=== PATIENT | female | born 1980 | race Caucasian/White ===

== ENCOUNTER 2019-09-18 12:05 | Observation (INO) ==
[2019-09-18 12:56] LABS: BASO# 0.03 X1000 (0.0-0.2); BASO% 0.4 % (0.0-0.8); EOS# 0.11 X1000 (0.0-0.7); EOS% 1.3 % (0.0-10.0); HEMATOCRIT 37.7 % (37.0-47.0); HEMOGLOBIN 11.7 g/dL (12.0-16.0); IMM GRAN# 0.01 X1000 (0.0-0.04); IMM GRAN% 0.1 % (0.0-0.5); LYMPH# 2.37 X1000 (1.2-3.4); LYMPH% 27.8 % (20.5-51.1); MCH 27.7 PG (27-31); MCV 89.3 FL (81-99); MONO# 0.63 X1000 (0.11-0.59); MONO% 7.4 % (1.7-9.3); MPV 9.8 FL (7.4-10.4); NEUT# 5.39 X1000 (1.4-6.5); PLT 285 X1000 (130-400); RBC 4.22 XMIL (4.2-5.4); RDW 16.4 % (11.5-14.5); WBC 8.54 X1000 (4.8-10.8)
[2019-09-18 13:04] LABS: ACETAMINOPHEN < 1.2 ug/mL (10-30); AGAP 14; ALBUMIN 4.8 g/dL (3.5-5.0); ALKALINE PHOSPHATASE 35 U/L (32-104); BUN 15 mg/dL (8-22); CALCIUM 9.1 mg/dL (8.8-10.2); CHLORIDE 102 mmol/L (98-107); COSMO 278; CREATININE 0.6 mg/dL (0.5-0.9); ESTIMATED GFR > 60; GLUCOSE 83 mg/dL (70-104); GOT 20 U/L (10-30); GPT 14 U/L (10-36); POTASSIUM 3.9 mmol/L (3.5-5.1); SALICYLATES < 3.00 mg/dL (3-10); SODIUM 139 mmol/L (136-145); TCO2 24 mmol/L (25-35); TOTAL PROTEIN 7.5 g/dL (6.3-8.3)
--- NOTE | 2019-09-18 14:56 | PROVIDER DOCUMENTATION ---
This chart was entered by Vianey Henriquez Scribe, acting as scribe for Mercedes Rubi CRNP. [id number] Abuse/Overdose - General Chief Complaint: Psych-High Risk Stated Complaint: overdose Time Seen by Provider: 09/18/19 12:59 Source: patient, EMS ([facility]) Unable to obtain history due to:: urgency Allergies/Adverse Reactions: Allergies Allergy/AdvReac Type Severity Reaction Status Date / Time sulfamethoxazole Allergy Unknown Verified 10/25/17 13:16 [From ] trimethoprim [From ] Allergy Unknown Verified 10/25/17 13:16 Home Medications: Home Medication List Medication Instructions Recorded Confirmed Last Taken Type Amphetamine Salts [Adderall] 20 mg PO DAILY 01/08/18 01/08/18 Unknown History Fluoxetine HCl 20 mg PO DAILY 01/08/18 01/08/18 Unknown History Lisdexamfetamine Dimesylate 70 mg PO DAILY 01/08/18 01/08/18 Unknown History [Vyvanse] - History of Present Illness-Drug/Alcohol Nature of Presenting Problem: 39 yowf presents to the ed via ems for overdose. pt intentionally overdosed this am approximately at 1020am. pt sts she has been depressed due to her leaving her 3 weeks prior. Pt reports taking x 30 0.5mg Klonopin, x2 20mg adderall and x1 70mg Vyvanse. However, a bottle of 60 pills was filled yesterday and only 2 were found in the bottle. pt on exam is A&Ox3. no family is with pt at this time This episode of drinking or use began:: this morning (1020) Severity: reports: moderate Situational problems related to:: reports: spouse Psychiatric Complaints: reports: depressed, suicidal ideation Associated Symptoms: reports: denies symptoms. denies: diaphoresis, dizziness, nausea, vomiting Any injuries associated with this episode of intoxication?: No Similar Symptoms Previously?: Yes Recently seen or treated by another doctor?: No - Substance Abuse Substance Use: reports: denies - Overdose Intentional drug overdose?: Yes List substance(s) ingested.: clonopin/adderall/vayvanse How did the ingestion/other suicidal act come to attention?: unsure Suicide Risk Assessment: depressed, prior attempt, no social supports, organized plan, no spouse, panic disorder Clinician's estimation of suicide risk?: high risk Review of Systems - Adult - REVIEW OF SYSTEMS - ADULT Constitutional: denies: chills, fever Eyes: reports: no symptoms reported Ears, Nose, Mouth & Throat: reports: no symptoms reported Cardiovascular: denies: chest pain, palpitations Respiratory: reports: no symptoms reported Gastrointestinal: denies: abdominal pain, diarrhea, nausea, vomiting Genitourinary: reports: no symptoms reported Musculoskeletal: denies: back pain, neck pain Integumentary: reports: no symptoms reported Neurological: reports: no symptoms reported Psychiatric: reports: see HPI, depression, suicidal thoughts Endocrine: reports: no symptoms reported Hematologic/Lymphatic: reports: no symptoms reported Allergic/Immunologic: reports: no symptoms reported All Other Systems: Reviewed and Negative Past History - Adult - PAST MEDICAL HISTORY-ADULT Review of Records: reports: Old Records Reviewed, Nursing Assessment Review, Medications Reviewed, Social history reviewed & non-contributory. Major Childhood Illnesses: reports: denies history Cardiovascular: reports: denies history Respiratory: reports: denies history Gastrointestinal: reports: denies history Obstetrical/Gynecological: reports: denies history Genitourinary: reports: denies history Musculoskeletal: reports: denies history Neurological: reports: denies history Psychiatric: reports: anxiety, depression, other (panic attack) Endocrine/Immune: reports: denies history Other Conditions: reports: denies history - PRIOR SURGERIES/PROCEDURES Surgical/Procedure History: reports: reviewed, not pertinent - IMMUNIZATION STATUS Childhood Immunizations: See Nurse Assessment Flu Vaccine: See Nurse Assessment - FAMILY HISTORY Family History: reviewed, not pertinent - SOCIAL HISTORY Smoking: denies Substance Use: denies Living Situation: family Physical Exam-General - PHYSICAL EXAM-ADULT Initial Vital Signs Reviewed: Yes - CONSTITUTIONAL General Appearance: alert, no apparent distress, thin, other (tearful) - EYES Eyes: PERRL/EOMI, pink conjunctivae - HEAD, EARS, NOSE, MOUTH & THROAT HENMT: moist mucous membranes - NECK Neck: non-tender, full range of motion, supple, normal inspection - RESPIRATORY Respiratory: lungs clear, normal breath sounds, no respiratory distress, no accessory muscle use - CARDIOVASCULAR Cardiovascular: normal peripheral pulses, regular rate, rhythm - CHEST (BREASTS) Chest/Breast: deferred - GASTROINTESTINAL (ABDOMEN) Abdominal Exam: normal bowel sounds, non tender, soft - GENITOURINARY Female Genitalia/Pelvic Exam: deferred Rectal Exam: deferred Hemoccult Exam: deferred - LYMPHATIC Lymphatic: no adenopathy - MUSCULOSKELETAL Back Exam: normal inspection, no vertebral tenderness Extremity: normal range of motion, non-tender, normal inspection - SKIN Integumentary: normal color, normal turgor, warm/dry. negative: diaphoresis, jaundice, pallor - NEUROLOGIC Neurologic: grossly normal, no motor/sensory deficits - PSYCHIATRIC Psych/Mental Status: normal thought content, normal thought process, oriented x 3, depressed affect, tearful Progress - PLAN OF CARE/RESULTS Progress/Plan/Lab Results: Vital Signs - 8 hr 09/18/19 12:08 09/18/19 13:25 09/18/19 14:16 Temperature 98.4 F Pulse Rate 85 80 77 Respiratory Rate 20 16 18 Blood Pressure 105/73 120/47 112/88 O2 Sat by Pulse Oximetry 100 100 99 Laboratory Results - last 24 hr 09/18/19 09/18/19 09/18/19 12:43 12:51 12:51 WBC RBC Hgb Hct MCV MCH MCHC RDW Std Deviation Plt Count MPV Immature Gran % (Auto) Neut % (Auto) Lymph % (Auto) [place] % (Auto) Eos % (Auto) Baso % (Auto) Immature Gran # (Auto) Neut # (Auto) Lymph # (Auto) [place] # (Auto) Eos # (Auto) Baso # (Auto) Sodium 139 Potassium 3.9 Chloride 102 Carbon Dioxide 24 L Anion Gap 14 BUN 15 Creatinine 0.6 Estimated GFR/1.73 m2 > 60 BUN/Creatinine Ratio 25 Glucose 83 POC Glucose 73 Calculated Osmolality 278 Calcium 9.1 Total Bilirubin 0.40 AST 20 ALT 14 Alkaline Phosphatase 35 Total Protein 7.5 Albumin 4.8 Globulin 3.0 Albumin/Globulin Ratio 2.0 Salicylates < 3.00 L Acetaminophen < 1.2 L Plasma/Serum Ethyl Alc 09/18/19 12:51 WBC 8.54 RBC 4.22 Hgb 11.7 L Hct 37.7 MCV 89.3 MCH 27.7 MCHC 31.0 L RDW Std Deviation 16.4 H Plt Count 285 MPV 9.8 Immature Gran % (Auto) 0.1 Neut % (Auto) 63.0 Lymph % (Auto) 27.8 Bowman % (Auto) 7.4 Eos % (Auto) 1.3 Baso % (Auto) 0.4 Immature Gran # (Auto) 0.01 Neut # (Auto) 5.39 Lymph # (Auto) 2.37 Bowman # (Auto) 0.63 H Eos # (Auto) 0.11 Baso # (Auto) 0.03 Sodium Potassium Chloride Carbon Dioxide Anion Gap BUN Creatinine Estimated GFR/1.73 m2 BUN/Creatinine Ratio Glucose POC Glucose Calculated Osmolality Calcium Total Bilirubin AST ALT Alkaline Phosphatase Total Protein Albumin Globulin Albumin/Globulin Ratio Salicylates Acetaminophen Plasma/Serum Ethyl Alc Orders Category Date Time Status Cardiac Monitoring DIRECTED Care 09/18/19 12:15 Active Finger Stick Blood Sugar (ED) DIRECTED Care 09/18/19 12:15 Active Neurological Check ORDERED Care 09/18/19 13:37 Active ACETAMINOPHEN [TDM] Stat Lab 09/18/19 12:51 Completed ALCOHOL BLOOD Stat Lab 09/18/19 12:51 Completed CBC WITH ELECTRONIC DIFF [HEME] Stat Lab 09/18/19 12:51 Completed COMPREHENSIVE METABOLIC PANEL [CHEM] Stat Lab 09/18/19 12:51 Completed SALICYLATES [TDM] Stat Lab 09/18/19 12:51 Completed URINALYSIS [URINALYSIS] Stat Lab 09/18/19 12:36 Ordered URINE DRUG SCREEN PL Stat Lab 09/18/19 12:36 Ordered Overdose (suspected) Stat Oth 09/18/19 12:14 Ordered EKG [EKG] Stat Ther 09/18/19 12:15 Ordered Transfer/Admit Order [TRANSFER] Routine Transfer 09/18/19 13:34 Ordered Result Diagrams: 09/18/19 12:51 09/18/19 12:51 - REASSESSMENT Reassessment #1 Time Reassessed: 13:15 (Pt aware will need admission) Status: unchanged (pt is resting in bed in no distress) - EKG 1 Time of EKG reading by physician:: 12:58 EKG Read and Signed by:: Suleman Stringer EKG Interpretation (*Must complete 3 of following elements*): Normal (borderline) Rate: 72 Rhythm: nsr [place]: normal QRS: normal [place] Interval: normal ST Wave: normal Comments: possible left atrial enlargement - CONSULTS/PCP/HOSPITALIST Notification #1 *Consult/PCP/Hospitalist*: hospitalist dr paz Time Discussed: 13:15 Reason/Comments: is in ed spoke with pt Consult Disposition: Admit Departure - Departure Date of Disposition Decision: 09/18/19 Time of Disposition Decision: 13:36 DIAGNOSIS: Suicidal ideations Overdose Qualifiers: Encounter type: sequela Injury intent: intentional self-harm Qualified Code(s): T50.902S - Poisoning by unspecified drugs, medicaments and biological substances, intentional self-harm, sequela Disposition: ADMITTED INPATIENT 09 Certified Medical Emergency: Emergent Condition: Fair - Critical Care Note This patient required my direct & personal management of CC.: Yes Total Time (mins): 30 Critical Care Statement: This patient required my direct personal management to treat or rule out processes, the absence of which, could potentiallly result in sudden, clinically significant life or limb threatening deterioration. Attestation - Physician/ MEAGAN Attestation Patient care was provided by Advanced Practice Provider:: Yes Advanced Practice Provider:: Mercedes Rubi Advanced Practice Provider documentation review:: The Mid-level provider documentation, treatment plan and medical decision making was reviewed by the physician who agrees with all treatment and medical decision making by the MLP. The physician spent face to face time with patient:: No Advanced Practice Provider documentation review:: Supervising physician onsite and consulted in the evaluation and care of this patient. The physician did not have a face to face encounter with the patient. This chart was documented by the indicated scribe, (Vianey Henriquez Scribe) and accurately reflects the services I performed and decisions made by me, Mercedes Rubi CRNP, as attested by the provider's signature.
--- NOTE | 2019-09-18 16:56 | EKG Report ---
Test Performed on : 09/18/2019 12:58:54 PM Test Reason : overdose Blood Pressure : / mmHG Vent. Rate : 072 BPM Atrial Rate : 072 BPM P-R Int : 136 ms QRS Dur : 086 ms QT Int : 410 ms P-R-T Axes : 070 083 050 degrees QTc Int : 448 ms Normal sinus rhythm. Possible Left atrial enlargement Borderline ECG When compared with ECG of 25-OCT-2017 20:02, Nonspecific T wave abnormality has replaced inverted T waves in Inferior leads T wave inversion less evident in Anterior leads Unconfirmed Result
[2019-09-18] MEDS ORDERED: SODIUM CHLORIDE 0.9% INJ SCH (17:09)
[2019-09-18] MEDS ORDERED: ZOFRAN IV PRN (17:09)
[2019-09-18] MEDS: NS 1,000 ML IV SCH (17:25)
[2019-09-18] MEDS: PROTONIX IV SCH (17:26)
--- NOTE | 2019-09-18 18:44 | HISTORY AND PHYSICAL ---
CHIEF COMPLAINT: Overdose. HISTORY OF PRESENT ILLNESS: This is a 39-year-old female who presented to the emergency room via EMS who reports taking 25 0.5 mg Klonopin pills, 1 Vyvanse 70 mg pill and 1 Adderall 20 mg pill. She did state to the emergency room personnel that this was a suicide attempt. She reported to Dr Weinberg that the Klonopin was prescribed to her about 2 years ago after having her baby and she only took a few pills at that time. She stated that recently she found out that her had been cheating on her and that she wanted to so she took what was left in the bottle from 2 years prior. However, in reviewing Ms Stanton medications, it is noted that she filled #60 Klonopin 0.5 mg on 06-30-2019, 07-24-2019, 08-21-2019, 09-16-2019. PAST MEDICAL HISTORY: depression, anxiety. 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 SOCIAL HISTORY: She is . She denies any alcohol, tobacco, or illicit drug use. ALLERGIES: Bactrim with unknown reaction. HOME MEDICATIONS: Adderall 30 mg, Klonopin 0.5 p.o. b.i.d., Vyvanse 70 mg 1 p.o. daily, fluoxetine 20 mg p.o. daily. REVIEW OF SYSTEMS: Discussed with patient with pertinent positives stated in the HPI. She denies any syncope or dizziness, any chest pain or palpitations, any night sweats, recent weight loss or weight gain any shortness of breath, cough, any fevers or chills, any nausea, vomiting, diarrhea, constipation, black or bloody vomitus or stools any hematuria, dysuria, frequency urgency. PHYSICAL EXAM: This is a 39-year-old female who is sitting on the stretcher in the emergency room tearful. VITAL SIGNS: Blood pressure is 112/88 with a heart rate of 90, respirations are 20, temperature is 98.2 degrees with room air saturations 98-100%. HEENT: Pupils are equal, round, react to light. EOMs are intact. Sclerae are anicteric. Head is normocephalic, atraumatic. Mucous membranes are moist. NECK: Supple with trachea midline. CARDIOVASCULAR: Regular rate and rhythm. S1 and S2 are appreciated. She has no lower extremity edema. Denies any calf tenderness. Peripheral pulses are palpable x4 extremities. PULMONARY: Breath sounds are clear. Chest rises and falls symmetric respiration. Chest wall is nontender to palpation . GASTROINTESTINAL: Abdomen soft, nontender, nondistended with bowel sounds in all 4 quadrants. NEUROLOGIC: She is alert, oriented x3 with cranial nerves 2-12 grossly intact. SKIN: Warm and dry. LABS: WBC is 8.5 with hemoglobin 11.7, hematocrit 37.7 and platelets of 285,000. Sodium 139, potassium 3.9, BUN 15, creatinine 0.6 with a glucose of 83. Blood alcohol reveals none detected. Salicylates are less than 3 and acetaminophen is 1.2. ASSESSMENT AND PLAN: 1. Intentional overdose. 2. Suicide ideation. 3. depression with anxiety. PLAN: Patient will be transferred to [facility] to ICU. neuro checks q4h suicide precautions. Continue IV hydration, Zofran for nausea. CBC and CMP in the morning vital signs hourly Discussed with Dr Weinberg. Further treatments pending hospital course. Dictated by NGUYỄN Trevino for Fredy Weinberg MD cc: NGUYỄN Trevino MD [facility]
[2019-09-18] MEDS ORDERED: HALDOL IV ONE (18:54)
--- NOTE | 2019-09-19 01:20 | HISTORY AND PHYSICAL ---
ADDENDUM: Patient seen and examined by myself. Full note dictated and discussed with nurse practitioner. Patient presented to the hospital after an intentional overdose at home of an undetermined amount of Klonopin. She initially told me that she had her Klonopin prescription from 2 years ago and rarely really took it. However, it appears as though she gets a prescription filled monthly. We are going to admit her to the hospital ICU for close observation. Please see full note. cc: Fredy Weinberg MD
[2019-09-19] MEDS: NS 1,000 ML IV SCH ×3 (03:31→22:16)
[2019-09-19 06:28] LABS: BASO# 0.03 X1000 (0.0-0.2); BASO% 0.6 % (0.0-0.8); EOS# 0.11 X1000 (0.0-0.7); EOS% 2.1 % (0.0-10.0); HEMATOCRIT 32.9 % (37.0-47.0); LYMPH# 1.86 X1000 (1.2-3.4); LYMPH% 35.6 % (20.5-51.1); MCH 27.2 PG (27-31); MCHC 30.4 g/dL (33-37); MCV 89.6 FL (81-99); MONO# 0.55 X1000 (0.11-0.59); MONO% 10.5 % (1.7-9.3); MPV 9.6 FL (7.4-10.4); NEUT# 2.67 X1000 (1.4-6.5); NEUT% 51.2 % (42.2-75.2); PLT 204 X1000 (130-400); RBC 3.67 XMIL (4.2-5.4); RDW 16.4 % (11.5-14.5); WBC 5.22 X1000 (4.8-10.8)
[2019-09-19 06:55] LABS: AGAP 11; ALB/GLOB RATIO 2.1; ALBUMIN 3.7 g/dL (3.5-5.0); ALKALINE PHOSPHATASE 32 U/L (32-104); BUN 9 mg/dL (8-22); CALCIUM 8.5 mg/dL (8.8-10.2); CHLORIDE 104 mmol/L (98-107); COSMO 275; CREATININE 0.7 mg/dL (0.5-0.9); ESTIMATED GFR > 60; GLUCOSE 79 mg/dL (70-104); GOT 13 U/L (10-30); GPT 11 U/L (10-36); POTASSIUM 3.8 mmol/L (3.5-5.1); SODIUM 139 mmol/L (136-145); TCO2 24 mmol/L (25-35); TOTAL BILIRUBIN 0.51 mg/dL (0.20-1.00); TOTAL PROTEIN 5.5 g/dL (6.3-8.3)
--- NOTE | 2019-09-19 08:28 | PROGRESS NOTE ---
DATE: 09/19/2019 SUBJECTIVE: According to nursing staff, this patient has been very agitated overnight. She threatened to kill herself so she was given Haldol and since then, she has been more quiet. She is still suicidal this morning. No other issues noted as per nursing staff overnight. OBJECTIVE: Vital Signs: Temperature 97.9 degrees, heart rate 74, respiratory rate 19, blood pressure 118/79, O2 saturation 96% on room air. General: This is a 39-year-old female, lying in bed, in no acute distress. Cardiovascular: S1, S2 heard. No murmurs, gallops, or rubs. Regular rate and rhythm. Respiratory: Clear bilaterally to auscultation. No work of breathing or using accessory muscles. Abdomen: Soft, nontender to palpation. Bowel sounds present. No organomegaly. Extremities: No clubbing, cyanosis, or edema. Peripheral pulses present in both legs. Neurological: The patient is a little bit sleepy. Moves 4 extremities spontaneously. LABORATORY DATA: Reviewed and is unremarkable. ASSESSMENT: 1. Suicidal attempt. 2. Intentional overdose. 3. depression with anxiety. PLAN: This patient has been admitted to the hospital because she took 25 tablets of Klonopin 0.5 mg plus 1 tablet of Adderall 20 mg and 1 tablet of Vyvanse 70 mg. Overnight she has been agitated and still saying that she wants to kill herself, and she will do it as soon as she has the opportunity to do it. We needed to keep her here in the intensive care unit monitoring for overdose and she has been pretty much fine with mental status is okay, agitated but no signs of respiratory depression, she has not needed any oxygen supplementation. I think at this point, pretty much the overdose for Klonopin is definitely better. No new recommendations from Poison Control. She does not have any history of polysubstance abuse. I think considering this patient is actively suicidal and depressed, we are going to call [facility] for psychiatric screening. The patient at this point is medically stable. Her labs, as we mentioned before, yesterday and today, did not reveal any abnormality. The patient at this point is awake and quiet. We will see what they have to say. In the meantime, we will keep this patient in the intensive care unit for better monitoring. cc: Robel Morales MD
[2019-09-19 11:12] LABS: URINE SOURCE CLEAN CATCH
[2019-09-19 11:48] LABS: BILIRUBIN URINE NEGATIVE (NEGATIVE); COLOR YELLOW; GLUCOSE URINE NEGATIVE (NEGATIVE); KETONE URINE NEGATIVE (NEGATIVE); TURBIDITY URINE HAZY (CLEAR); UR EPITHELIAL CELLS <10 /HPF (<10); URINE BACTERIA 1+ /HPF; URINE RBC 20-40 /HPF (<10); URINE WBC 20-40 /HPF (<10)
[2019-09-19 11:49] LABS: BLOOD URINE NEGATIVE (NEGATIVE); LEUKOCYTES URINE MODERATE (NEGATIVE); NITRITE URINE NEGATIVE (NEGATIVE); PROTEIN URINE TRACE mg/dL (NEGATIVE); UROBILINOGEN URINE NORMAL (NORMAL)
[2019-09-19 12:22] LABS: UR AMPHETAMINES QUAL PRESUMPTIVE POSITIVE (NONE DETECT); UR BARBITUATES QUAL NONE DETECTED (NONE DETECT); UR BENZODIAZEPIN QUAL PRESUMPTIVE POSITIVE (NONE DETECT); UR CANNABINOIDS QUAL NONE DETECTED (NONE DETECT); UR COCAINE QUAL NONE DETECTED (NONE DETECT); UR METHADONE QUAL NONE DETECTED (NONE DETECT); UR OPIATES QUAL NONE DETECTED (NONE DETECT); UR OXYCODONE QUAL NONE DETECTED (NONE DETECT); UR PCP QUAL NONE DETECTED (NONE DETECT)
[2019-09-19] MEDS: PROTONIX IV SCH (19:19)
[2019-09-19] MEDS ORDERED: LEXAPRO PO SCH (21:00)
--- NOTE | 2019-09-20 07:40 | PROGRESS NOTE ---
DATE: 09/20/2019 SUBJECTIVE: The patient had been resting well last night. No new issues noted as per nursing staff overnight. OBJECTIVE: Vital Signs: Temperature 98.4 degrees, heart rate 66, respiratory rate 20, blood pressure 146/90, O2 saturation 98% on room air. General Examination: This is a 39-year-old female, lying in bed, in no acute distress. Cardiovascular Examination: S1 and S2 heard. No murmurs, gallops, or rubs. Regular rate and rhythm. Respiratory Examination: Clear bilaterally to auscultation. No work of breathing or using accessory muscles. Abdomen: Soft, nontender to palpation. Bowel sounds present. No organomegaly. Extremities: No clubbing, cyanosis, or edema. Peripheral pulses present in both legs. Neurological Examination: The patient is more alert and awake. Moves 4 extremities. Laboratory Data: Reviewed. ASSESSMENT: 1. Suicide attempt. 2. Intentional overdose. 3. depression with anxiety. PLAN: At this point, my plan is to keep this patient in the hospital. She has been evaluated by [facility] and she meets criteria for inpatient stay but, unfortunately, they do not have any beds at this point. I am going to transfer this patient to a regular room. We will continue with one-on-one observation for this patient. As soon as we have a bed in a psychiatric facility, we will go ahead and transfer her. I explained to the patient my plan and she acknowledged understanding. cc: Robel Morales MD
[2019-09-20] MEDS: HALDOL IV PRN ×2 (09:52→19:02)
[2019-09-20 18:42] VITALS: BP 140/77
[2019-09-20] MEDS: PROTONIX IV SCH (19:02)
[2019-09-20] MEDS: NS 1,000 ML IV SCH (19:11)
--- NOTE | 2019-09-21 13:17 | DISCHARGE SUMMARY ---
ADMISSION DATE: 09/18/2019 DISCHARGE DATE: 09/20/2019 DISCHARGE DIAGNOSES: 1. Intentional overdose. 2. Suicidal attempt. 3. depression with anxiety. CONSULTATIONS: Yin Nunez. PROCEDURES: EKG done on admission showed left atrial enlargement, normal sinus rhythm. HOSPITAL COURSE: In brief, this is a 39-year-old, female, who presented to the emergency department, reporting that she took 25 tablets of Klonopin 0.5 mg, and 1 tablet of Adderall, and 1 tablet of Vyvanse. The patient was admitted to the intensive care unit for monitoring. We dealt with Poison Control, and we followed recommendations. The next day, she was feeling fine, although very agitated. We provided some Haldol, and the patient was okay. She reports that she was depressed for a long time, although apparently she is taking her medications as she is supposed to. We considered this patient medically stable after 2 days, and we consulted Yin Nunez. This patient meets criteria for inpatient treatment for depression and for this suicidal ideation, but unfortunately they did not have any bed, so we consulted social services designee, and finally we were able to find a bed in [facility]. The patient is going to be transferred over there by ambulance. List of medications are going to be directed by them. DISCHARGE PHYSICAL EXAMINATION: Vital Signs: Temperature 98.2 degrees, heart rate 69, respiratory rate 16, blood pressure 119/86, O2 saturation 100% on room air. General: This is a 39-year-old, female, lying in bed in no acute distress. Cardiovascular: S1, S2 heard. No murmurs, gallops, or rubs. Regular rate and rhythm. Respiratory: Clear bilaterally to auscultation. No work of breathing or using accessory muscles. Abdomen: Soft, nontender to palpation. Bowel sounds present. No organomegaly. Extremities: No clubbing, cyanosis, or edema. Peripheral pulses present in both legs. Neurological: The patient is alert and oriented x3. Moves all 4 extremities. DISCHARGE DISPOSITION: The patient is going to [facility]. cc: Robel Morales MD
== END 2019-09-20 23:00 ==
LOC: P.ED 12:05 → INTOOBSV 12:06 → ICU 12:06 → SUATTDRO 12:06 → ICU 16:20
PROVIDERS: ATTEND Internal Medicine